=== PATIENT | female | born 1940 | race Caucasian/White ===

== ENCOUNTER 2024-04-15 14:27 | Outpatient (CLI) | payer MEDICARE, SELFPAY ==
--- NOTE | 2024-04-15 15:30 | CRLHL7_ITS ---
For Patients: As a result of the Century Cures Act, medical imaging exams and procedure reports are released immediately into your electronic medical record. You may view this report before your referring provider. If you have questions, please contact your health care provider. INDICATION: Radiculopathy. COMPARISON: 04/09/2024. TECHNIQUE: Sagittal T1, T2, and STIR sequences. Axial T1 and T2 weighted sequences. FINDINGS: Grade 1 anterolisthesis of L4 on L5 measures approximately 6 mm. Otherwise, normal alignment. No fractures. No vertebral body loss of height. No ligamentous injury. No suspicious osseous lesions. Normal conus terminates at L2. Vertebral body hemangioma L5. [id number] L1-2: No spinal canal neural foraminal narrowing. L2-3: No spinal canal or neural foraminal narrowing. L3-4: Annular bulge. No narrowing of spinal canal. No neural foraminal narrowing. L4-5: Grade 1 anterolisthesis. Disc degeneration and posterior disc herniation measures approximate 5 mm in short axis. Moderate severe narrowing of spinal canal. Bilateral subarticular recess narrowing with potential impingement of the traversing L5 nerve roots. Oblique orientation of bilateral foramina with moderate severe right and mild left neural foraminal narrowing. Potential impingement of the exiting right L4 nerve root. Moderate arthropathy. Small bilateral facet joint effusions. L5-S1: Disc degeneration posterior disc bulge. There is a small cystic lesion within the dorsal epidural space measures approximately 5 mm in diameter which likely represents a synovial degenerative cysts. Moderate narrowing of spinal canal. No gopi impingement of the traversing S1 nerve roots. Mild narrowing of bilateral foramina. Degenerative changes of the SI joints. Normal paraspinal soft tissues. IMPRESSION: 1. Grade 1 anterolisthesis of L4 on L5. Otherwise, normal alignment. No fractures 2. Lumbar spondylosis. 3. At L4-5, disc degeneration. Posterior disc herniation. Moderate to severe narrowing of the spinal canal. Potential impingement of the traversing L5 nerve roots. Moderate to severe right and mild left neural foraminal narrowing. 4. At L5-S1, small degenerative synovial cyst within the dorsal epidural space. Moderate narrowing of the spinal canal Dictated by Cruz Nguyen MD @ 04/16/2024 12:27:58 PM (Electronically Signed)
== END 2024-04-15 14:28 | disposition home or self-care (01) ==
PROVIDERS: Visit Provider Family Medicine
DX: M54.16 Radiculopathy, lumbar region (principal); M43.06 Spondylolysis, lumbar region; M51.369 Other intervertebral disc degeneration, lumbar region without mention of lumbar back pain or lower extremity pain; M71.38 Other bursal cyst, other site
CPT/HCPCS: 72148

== ENCOUNTER 2024-11-17 09:17 | Outpatient (CLI) | payer MEDICARE, SELFPAY | END 2024-11-17 09:18 | disposition home or self-care (01) | LOC: INJ CL 09:18 | PROVIDERS: Visit Provider Family Medicine | DX: M54.16 Radiculopathy, lumbar region (principal); M51.26 Other intervertebral disc displacement, lumbar region | CPT/HCPCS: 64483; J1100; Q9966 ==